=== PATIENT | male | born 1960 | race Caucasian/White ===

== ENCOUNTER 2017-06-30 13:11 | Emergency (ER) | payer OTHER ==
[~2017-06-30] VITALS: Ht 180.3 cm; Wt 79.0 kg
[~2017-06-30 13:11] MED LIST: DILAUDID4 MG PO; LORTAB 7.57.5 MG PO; MOTRIN800 MG PO; NO MEDS
[2017-06-30 13:44] LABS: HEMATOCRIT 44.2 % (39.0-50.0); HEMOGLOBIN 15.5 g/dl (14.0-18.0); IMMATURE GRANULOCYTES 0.3 % (0.0-1.0); MEAN CELL VOLUME 88.6 fL CALC (80.0-100.0); MEAN CORPUSCULAR HGB 31.1 pG CALC (26.0-32.0); MEAN CORPUSCULAR HGB CONC 35.1 g/L CALC (32.0-36.0); NEUT# 3.57 thou/uL (1.82-7.42); RED BLOOD COUNT 4.99 mill/uL (4.70-6.10); RED CELL DISTRI WIDTH 14.6 % (11.5-15.5)
[2017-06-30 13:57] LABS: ANION GAP 19 (6-22 (CALC)); BUN 5 mg/dL (9-20); BUN/CREATININE RATIO 8 (12-20 (CALC)); CALCIUM 9.3 mg/dL (8.4-10.2); CARBON DIOXIDE 19 mmol/l (22-30); CHLORIDE 105 mmol/l (95-108); CREATININE 0.7 mg/dL (0.7-1.3); GFR > 60 ML/MIN (>=60 (CALC)); GFR FOR AFR.AMER. > 60 ML/MIN (>=60 (CALC)); GLUCOSE 98 mg/dL (75-110); POTASSIUM 4.4 mmol/l (3.5-5.1); SODIUM 139 mmol/l (137-146)
[2017-06-30] MEDS ORDERED: MOTRIN400 MG PO ×2 (16:12→16:22)
[2017-06-30] MEDS ORDERED: ZOFRAN4 M1 PO ×2 (16:12→16:22)
[2017-06-30] MEDS ORDERED: NORCO1 TA1 PO (16:12)
[2017-06-30 17:00] VITALS: BP 162/78
== END 2017-06-30 17:00 | disposition home or self-care (01) | DRG 563 ==
LOC: ED 13:11
PROVIDERS: Family Medicine
PROC: 0PSHXZZ Reposition Right Radius, External Approach (ICD-10-PCS; principal; 2017-06-30)
DX: S52.501A Unspecified fracture of the lower end of right radius, initial encounter for closed fracture (principal); F17.210 Nicotine dependence, cigarettes, uncomplicated; Y04.0XXA Assault by unarmed brawl or fight, initial encounter

== ENCOUNTER 2021-04-16 10:43 | Emergency (ER) | payer MEDICARE, MEDICAID ==
[~2021-04-16] VITALS: Ht 180.3 cm; Wt 72.7 kg
[~2021-04-16 10:43] MED LIST changes: +MOTRIN400 MG PO; +NORCO1 TA1 PO; +ZOFRAN4 M1 PO
[2021-04-16 11:44] LABS: HEMATOCRIT 46.8 % (39.0-50.0); HEMOGLOBIN 15.9 g/dl (14.0-18.0); IMMATURE GRANULOCYTES 0.2 % (0.0-5.0); MEAN CORPUSCULAR HGB 30.2 pG CALC (26.0-32.0); NEUT# 9.78 thou/uL (1.82-7.42); RED BLOOD COUNT 5.26 mill/uL (4.70-6.10); RED CELL DISTRI WIDTH 15.2 % (11.5-15.5)
[2021-04-16 11:49] LABS: ALBUMIN 4.9 g/dL (3.2-5.0); ALKALINE PHOSPHATASE 85 u/l (38-126); BILIRUBIN, TOTAL 0.9 mg/dL (0.0-1.4); BUN 11 mg/dL (8-23); BUN/CREATININE RATIO 16 (12-20 (CALC)); CHLORIDE 97 mmol/l (95-108); CREATININE 0.7 mg/dL (0.7-1.3); GFR > 60 ML/MIN (>=60 (CALC)); GFR FOR AFR.AMER. > 60 ML/MIN (>=60 (CALC)); SGOT/AST 27 u/l (19-48); SODIUM 135 mmol/l (137-146); TOTAL PROTEIN 8.9 g/dL (6.3-8.2)
[2021-04-16 11:50] LABS: ANION GAP 17 (6-22 (CALC)); CARBON DIOXIDE 26 mmol/l (22-30)
[2021-04-16] MEDS ORDERED: METRONIDAZOL500 MG PO (14:25)
[2021-04-16] MEDS ORDERED: PERIDEX0.12 % MT (14:25)
[2021-04-16] MEDS ORDERED: CLEOCIN300 MG PO (14:25)
[2021-04-16 15:31] VITALS: BP 140/78
== END 2021-04-16 15:35 | disposition home or self-care (01) ==
LOC: ED 10:43
PROVIDERS: Emergency Medicine
PROC: 0C9P3ZZ Drainage of Tonsils, Percutaneous Approach (ICD-10-PCS; principal; 2021-04-16)
DX: J36 Peritonsillar abscess (principal); F17.210 Nicotine dependence, cigarettes, uncomplicated
CPT/HCPCS: Q9967

== ENCOUNTER 2021-10-28 17:32 | Emergency (ER) | payer OTHER, MEDICARE ==
[~2021-10-28] VITALS: Ht 180.3 cm; Wt 70.0 kg
[~2021-10-28 17:32] MED LIST changes: +CLEOCIN300 MG PO; +CLINDAMYCIN HY300 MG PO; +IBUPROFEN600 MG PO; +METRONIDAZOL500 MG PO; +PERIDEX0.12 % MT
[2021-10-28 20:04] VITALS: BP 153/88
== END 2021-10-28 20:04 | DRG 605 ==
LOC: ED 17:32
DX: S61.216A Laceration without foreign body of right little finger without damage to nail, initial encounter (principal); M72.0 Palmar fascial fibromatosis [Dupuytren]; F17.200 Nicotine dependence, unspecified, uncomplicated; W06.XXXA Fall from bed, initial encounter; Y92.143 Cell of prison as the place of occurrence of the external cause

== ENCOUNTER 2023-04-03 14:08 | Emergency (ER) | payer MEDICAID ==
[~2023-04-03] VITALS: Ht 180.3 cm; Wt 55.4 kg
[2023-04-03 14:19] VITALS: BP 142/88
[2023-04-03 14:30] VITALS: BP 121/80
[2023-04-03 14:45] VITALS: BP 125/81
[2023-04-03 14:50] LABS: BASO% 1.1 % (0-3); EOS% 4.1 % (0-8); HEMATOCRIT 42.3 % (39.0-50.0); IMMATURE GRANULOCYTES 0.2 % (0.0-5.0); LYMPH% 28.5 % (15-41); MEAN CELL VOLUME 87.9 fL CALC (80.0-100.0); MEAN CORPUSCULAR HGB 28.9 pG CALC (26.0-32.0); MEAN CORPUSCULAR HGB CONC 32.9 g/dL CAL (32.0-36.0); NEUT# 3.21 thou/uL (1.82-7.42); NEUT% 59.1 % (42-76); RED BLOOD COUNT 4.81 mill/uL (4.70-6.10); RED CELL DISTRI WIDTH 15.2 % (11.5-15.5)
[2023-04-03 15:01] LABS: HEMOGLOBIN 13.9 g/dl (14.0-18.0)
[2023-04-03 15:14] LABS: ALBUMIN 4.1 g/dL (3.2-5.0); ALKALINE PHOSPHATASE 60 u/l (38-126); ANION GAP 10 (6-22 (CALC)); BUN 8 mg/dL (8-23); BUN/CREATININE RATIO 11 (12-20 (CALC)); CARBON DIOXIDE 26 mmol/l (22-30); CHLORIDE 106 mmol/l (95-108); CREATININE 0.7 mg/dL (0.7-1.3); GFR FOR AFR.AMER. > 60 ML/MIN (>=60 (CALC)); GFR OTHER RACES > 60 ML/MIN (>=60 (CALC)); SGOT/AST 23 u/l (19-48); SODIUM 138 mmol/l (137-146)
[2023-04-03 15:16] LABS: BILIRUBIN, TOTAL 0.3 mg/dL (0.2-1.3); TOTAL PROTEIN 6.9 g/dL (6.3-8.2)
[2023-04-03 16:18] VITALS: BP 125/81
== END 2023-04-03 16:26 | disposition home or self-care (01) ==
LOC: ED 14:08
PROVIDERS: Family Medicine
DX: H53.8 Other visual disturbances (principal); F17.200 Nicotine dependence, unspecified, uncomplicated